=== PATIENT | male | born 2005 | race Caucasian/White ===

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

== ENCOUNTER 2025-09-07 12:57 | Emergency (ER) | payer MEDICAID ==
[~2025-09-07] VITALS: Ht 188 cm; Wt 81.8 kg
--- NOTE | 2025-09-07 13:41 | Physician Documentation ---
History of Present Illness General Chief Complaint: 5150 Stated Complaint: EVAL Time Seen by MD: 13:41 History of Present Illness Initial Comments Patient is a 19-year-old male with a history of methamphetamine abuse and psychosis who states he has not been taking his meds and he has been using methamphetamine daily. Patient states he has been am going through his blood. Patient is unable to provide a comprehensive history. He denies any suicidal or homicidal ideations at this time. Patient states he uses meth daily. The patient was brought in on a 5150 Medication Reconciliation Allergies: Coded Allergies: No Known Allergies (Unverified , 09/07/25) Miscellaneous Medications Home Med List (No Home Medications), (Reported) Past Medical History Past Medical History: No Pertinent History Past Surgical History: no surgical history Drug Use: marijuana Lives In: Home Review of Systems All Other Systems at this time: Reviewed and Negative Physical Exam Physical Exam Vital Signs: Temperature: 98.0, Source: Temporal, Heart Rate: 98, Respiratory Rate: 16, BP: 148/98, Pulse Oximetry: 99, Weight: 81.820 Oxygen Flow Rate: 0 Physical Exam VITALS: Reviewed and as above. GENERAL: Alert, the patient is agitated HEENT: Normocephalic, atraumatic, PERRL, EOMI, dry mucosa, no erythema RESPIRATORY: Lungs clear, normal breath sounds, no respiratory distress. CHEST: No accessory muscle use, no retractions CV: Regular rate, rhythm, no edema, no murmur, No: JVD GI: Soft, non-tender, bowels sounds present, no rebound, guarding, or rigidity BACK: No CVA tenderness, or swelling MUSCULOSKELETAL: No deformities, no edema SKIN: Warm and dry, no rash NEURO: Oriented x4, No motor or sensory deficit PSYCH: The patient is agitated with delusions, patient denies suicidal or homicidal ideations he has pressured speech and psychomotor agitation Progress Results/Orders Results/Orders Orders - MALLORIELJUAN CONRAD MD Urinalysis (09/07/25 13:05) Drug Screen, Urine (09/07/25 13:05) Med Rec (09/07/25 13:05) Close Observation Level (09/07/25 13:05) Covid19 Binax Poc Result Entry (09/07/25 13:05) Substance Use Navigator (09/07/25 13:05) Completed Orders - OHLFS,JUAN Bose MD Cbc/Diff (09/07/25 13:05) Ethanol (09/07/25 13:05) TSH (09/07/25 13:05) BMP (09/07/25 13:05) Regular Diet (09/07/25 Dinner) Vital Signs 09/07/25 09/07/25 09/07/25 09/07/25 13:01 13:44 15:17 18:45 Temp 98.0 Pulse 98 Resp 16 24 17 14 B/P (MAP) 148/98 Pulse Ox 99 O2 Flow Rate 0 09/07/25 09/08/25 20:58 07:14 Temp 98.0 97.8 Pulse 46 89 Resp 14 14 B/P (MAP) 95/51 (66) 106/61 (76) Pulse Ox 99 98 O2 Flow Rate 0 0 Laboratory Tests Test 09/07/25 13:22 09/07/25 13:38 SARS-CoV-2 Antigen (Rapid) Negative White Blood Count 7.6 Red Blood Count 4.63 L Hemoglobin 13.7 L Hematocrit 40.7 L Mean Corpuscular Volume 87.9 Mean Corpuscular Hemoglobin 29.7 Mean Corpuscular Hemoglobin Concent 33.8 Red Cell Distribution Width 13.5 Platelet Count 259 Mean Platelet Volume 8.2 Neutrophils (%) (Auto) 55.5 Lymphocytes (%) (Auto) 34.7 Monocytes (%) (Auto) 7.9 Eosinophils (%) (Auto) 1.3 Basophils (%) (Auto) 0.6 Neutrophils # (Auto) 4.2 Lymphocytes # (Auto) 2.6 Monocytes # (Auto) 0.6 Eosinophils # (Auto) 0.1 Basophils # (Auto) 0.0 CBC Comment Sodium Level 145 Potassium Level 3.2 L Chloride Level 107 Carbon Dioxide Level 28.4 Anion Gap 10 Blood Urea Nitrogen 11 Creatinine 0.85 Estimated GFR/1.73 m2 > 90 BUN/Creatinine Ratio 12.9 Glucose Level 84 Calcium Level 9.2 Albumin 4.2 Thyroid Stimulating Hormone (TSH) 1.53 Chemistry Comments Ethyl Alcohol Level < 10 Medical Decision Making Findings Patient is medically cleared for mental health evaluation. The patient was significantly agitated and trying to drink the so found of the soap dispenser he was medicated for his agitation. The patient has no identified medical condition that would preclude his evaluation by mental health. The patient came in with psychomotor agitation methamphetamine toxicity, the patient does not need inpatient psychiatric care of the 5150 was lifted the patient will be discharged Departure Impression: Primary Impression: Psychosis Qualified Codes: F29 - Unspecified psychosis not due to a substance or known physiological condition Additional Impression: Methamphetamine abuse Discharge Instructions: Methamphetamines Use Disorder Referrals: NO PRIMARY CARE PROVIDER (PCP) Signature Scribe Signature: no scribe Attestation: The note accurately reflects work and decisions made by me.Juan Patton MD 09/10/25 09:35 JUAN PATTON MD Sep 07, 2025 13:41
[2025-09-07 14:17] LABS: MEAN PLATELET VOLUME 8.2 FL (7.4-10.4); RED CELL DISTRIBUTION WIDTH 13.5 % (11.5-14.5)
[2025-09-07 14:38] LABS: CREATININE 0.85 MG/DL (0.60-1.10); TOTAL CARBON DIOXIDE 28.4 MMOL/L (24-32); eCRCL 159 ML/MIN; eGFR > 90 ML/MIN
[2025-09-07 14:40] LABS: ETHANOL < 10 MG/DL (<10)
[2025-09-07] MEDS ORDERED: NO HOME MEDS (14:53)
[2025-09-07] MEDS: haloperidol lactate 5mg/ml inj IM ONE (15:17)
[2025-09-07] MEDS: diazepam inj 5 MG/ML inj. IM ONE (15:17)
[2025-09-08 07:14] VITALS: BP 106/61; PULSE 89; RESP 14; TEMP 97.8; O2SAT 98
== END 2025-09-08 12:40 | disposition home or self-care (01) ==
LOC: ER 12:58
DX: F29 Unspecified psychosis not due to a substance or known physiological condition (principal); F15.10 Other stimulant abuse, uncomplicated; F12.90 Cannabis use, unspecified, uncomplicated; Z20.822 Contact with and (suspected) exposure to COVID-19
CPT/HCPCS: 36415; 80048; 80320; 84443; 85025; 87811; 96372; 99285; J1200; J1630; J3360; 99284